=== PATIENT | female | born 1985 | race Caucasian/White ===

== ENCOUNTER 2020-03-16 08:57 | Day surgery (SDC) | payer MEDICAID ==
[~2020-03-16 08:57] MED LIST: Acetaminophen 500 MG Tab PO ONE; Bupivacaine 0.5% 50 ML MDV ONE; Dexamethasone 4 MG/ML SDV ONE; Glycopyrrolate 0.2 MG/ML 5 ML MDV ONE; Lidocaine 1% with EPINEPHrine 1:100,000 50 ML MDV ONE; Neostigmine Methylsulfate 1 MG/ML 5 ML Syringe ONE; Ondansetron 4 MG/2 ML SDV ONE; Propofol 200 MG/20 ML SDV ONE; Rocuronium 50 MG/5 ML Vial ONE; fentaNYL 250 MCG/5 ML SDV ONE
[2020-03-16] MEDS ORDERED: Dextrose 5%-Lactated Ringers 1,000 ML IV SCH (09:45)
[2020-03-16] MEDS ORDERED: Albuterol/Ipratropium 3.0-0.5 MG/3 ML Neb Soln NEB ONE (10:30)
[2020-03-16] MEDS ORDERED: cefOXitin 2 GM in Sodium Chloride 0.9% 50 ML IV ONE (10:30)
[2020-03-16] MEDS ORDERED: Ketamine 50 MG in Sodium Chloride 0.9% 49.5 ML IV SCH (10:30)
[2020-03-16] MEDS ORDERED: Ketamine 500 MG/5 ML MDV IV SCH (10:30)
[2020-03-16] MEDS ORDERED: fentaNYL 250 MCG/5 ML SDV ONE (11:30)
[2020-03-16] MEDS ORDERED: Labetalol 20 MG/4 ML Syringe ONE (11:49)
[2020-03-16] MEDS ORDERED: fentaNYL 100 MCG/2 ML SDV IVPUSH ONE (12:23)
[2020-03-16] MEDS ORDERED: hydrOXYzine HCL 100 MG/2 ML SDV IM ONE (12:23)
[2020-03-16] MEDS ORDERED: Pantoprazole 40 MG Vial IVPUSH ONE (13:28)
[2020-03-16] MEDS ORDERED: Acetaminophen/HYDROcodone 325-5 MG Tab PO PRN (13:29)
--- NOTE | 2020-03-20 11:24 | OR ---
DATE OF PROCEDURE: 03/16/2020 SURGEON: Manuel Holden MD PREOPERATIVE DIAGNOSIS: Chronic cholecystitis and cholelithiasis. POSTOPERATIVE DIAGNOSES: 1. Chronic cholecystitis and cholelithiasis with adherence of gallbladder neck to duodenum. 2. Incarcerated umbilical hernia. OPERATIVE PROCEDURES: Diagnostic laparoscopy with: 1. Cholecystectomy (33006). 2. Repair of area of deserosalization of duodenum (98498). 3. Repair of incarcerated umbilical hernia (17685). ANESTHESIA: General. ADVERTISING LAYOUT WORKER: Carey Morocho PA-C. INDICATIONS FOR PROCEDURE: This is a 34-year-old presenting with increasingly marked problems with biliary colic, was noted to have cholelithiasis and plan is to proceed with a laparoscopic cholecystectomy. Potential risks of the procedure including bleeding, infection, injury to underlying viscera, problems with stones migrating to the common bile duct requiring additional procedures for correction were reviewed, along with possibility of persistent symptoms postoperatively were all gone over and the patient wishes to proceed. DETAILS OF PROCEDURE: The patient was taken to the operating room and after general endotracheal anesthesia was induced, the abdomen was prepped and draped. The patient was noted have an umbilical hernia with roughly a grape-sized area of incarcerated fatty tissue. A transverse subumbilical incision was made and the area was dissected free down to the level of the fascial defect. Through the fascial defect then a 12 mm trocar was placed and the peritoneal cavity inflated with 15 mmHg pressure with CO2. Laparoscope was reinserted. No underlying trocar insertion site injuries were seen. Following this, a 12 mm epigastric trocar was placed along with a single 5 mm right abdominal trocar. The gallbladder was retracted upward. There was a significant amount of omental adhesions to its surface, which were taken down with Harmonic Scalpel. As one further dissected down, it became evident that the gallbladder neck and the area of the cystohepatic triangle were densely adherent to the adjacent duodenum. This dissection was completed, the two structures. There was roughly a 1 cm area of deserosalization of the duodenum identified. This was at this point controlled with some 3-0 Vicryl seromuscular stitch, and at the conclusion of the procedure, also reinforced with fibrin sealant and the omentum being tacked up over the area of the duodenal repair. Once this operation was accomplished, the cystic duct and gallbladder neck junction was well delineated as was the adjacent cystic artery. Both structures were taken with PATRICIA sebastien and one additional arterial branch was then clipped 3 times proximally and divided and the gallbladder was then dissected off the gallbladder bed and delivered through the epigastric trocar site. The patient had a single large stone, roughly the size of present in the gallbladder neck. The area of dissection was inspected. No bleeding or other problems were noted. A drain was felt not to be necessary at this point and the camera port was then brought up to the epigastric site for the umbilical hernia repair. After the umbilical trocar site was removed, using the laparoscopic suture passer, the sutures were placed at the lining of the closure of the umbilicus transversely. Once these were in place, the remaining trocars were removed and the peritoneal cavity deflated. The epigastric site was closed at the fascia level with a single Vicryl stitch and the umbilical hernia sutures were also then tied and at each incision, the skin was closed with some 4-0 Vicryl skin stitch. Dressing was applied. Prior to closure, bilateral transversus abdominis plane blocks were placed and the wound was anesthetized with 1% lidocaine mixed with Marcaine. The patient was taken to the recovery room in satisfactory condition. Physician laundry assistant, Carey Morocho, played an essential role in assisting in this case, helping to position the patient, retract structures as needed, as well as suturing and cutting sutures when indicated. Her presence improved patient safety and decreased the operative time. Manuel Holden MD /[id number]
== END 2020-03-16 14:48 | disposition home or self-care (01) ==
LOC: JP.SDS 08:57
PROVIDERS: ATTEND Surgery
DX: K80.10 Calculus of gallbladder with chronic cholecystitis without obstruction (principal); K42.0 Umbilical hernia with obstruction, without gangrene; F17.210 Nicotine dependence, cigarettes, uncomplicated; Z98.890 Other specified postprocedural states; Z79.899 Other long term (current) drug therapy; Z88.8 Allergy status to other drugs, medicaments and biological substances; Z88.5 Allergy status to narcotic agent
CPT/HCPCS: 81025; 88302; 88304; 94640; A9270-GY; C9113; J0171; J0694; J1100; J2405; J2704; J2710; J2795; J3010; J3410; J3490; J7121; J7620-GY